=== PATIENT | female | born 1965 | race Caucasian/White ===

== ENCOUNTER 2020-03-05 18:45 | Emergency (ER) | payer MEDICAID, SELFPAY ==
[~2020-03-05] VITALS: Ht 172.7 cm; Wt 77.1 kg
[2020-03-05 19:43] VITALS: Ht 172.7 cm; Wt 77.1 kg
[2020-03-05 20:07] VITALS: BP 122/73
== END 2020-03-05 20:07 | disposition home or self-care (01) ==
LOC: ED 18:45
DX: J02.8 Acute pharyngitis due to other specified organisms (principal); J45.909 Unspecified asthma, uncomplicated; Z20.828 Contact with and (suspected) exposure to other viral communicable diseases; Z88.0 Allergy status to penicillin
CPT/HCPCS: U0003-CS